=== PATIENT | male | born 1955 | race Caucasian/White ===

== ENCOUNTER → 2017-08-07 | Emergency (ER) | payer OTHER ==
[~2017-08-07] VITALS: Ht 175.3 cm; Wt 72.6 kg
[~2017-08-07] MED LIST: SYNTHROID100 MCG; SYNTHROID125 MCG
== END | disposition home or self-care (01) ==
LOC: ER 18:53
DX: R42 Dizziness and giddiness (principal); H53.8 Other visual disturbances; H53.2 Diplopia